=== PATIENT | male | born 1985 | race Caucasian/White ===

== ENCOUNTER → 2025-02-23 | Outpatient (CLI) | payer OTHER, SELFPAY ==
--- NOTE | 2025-02-23 07:53 | EKG12_ITS ---
Test Reason : PRE OP Blood Pressure : */* mmHG Vent. Rate : 53 BPM Atrial Rate : 53 BPM P-R Int : 164 ms QRS Dur : 96 ms QT Int : 432 ms P-R-T Axes : -5 72 36 degrees QTcB Int : 405 ms Sinus bradycardia Otherwise normal ECG Confirmed by Baldo Tucker ([id number]), assistant editor BLAYNE REEVES ([id number]) on 02/27/2025 1:02:55 PM Referred By: Jose Thompson Confirmed By: Baldo Tucker
[2025-02-23 10:04] LABS: Anion Gap 9 (5-15); BUN 23 mg/dL (4-19); BUN/Creat Ratio 21.4 RATIO (10-20); Calcium,Total 9.1 mg/dL (7.6-11.0); Carbon Dioxide 25.1 mmol/L (21.0-32.0); Chloride 106 mmol/L (98-108); Creatinine, Serum 1.07 mg/dL (0.70-1.20); EST Glomerular Filtration Rate 89 (>60); Glucose 103 mg/dL (70-99); Potassium 4.4 mmol/L (3.3-5.1); Sodium Level 140 mmol/L (133-145)
== END | disposition home or self-care (01) ==
LOC: PSN 06:56
PROVIDERS: Referring Provider Orthopaedic Surgery; Visit Provider Orthopaedic Surgery
DX: Z01.810 Encounter for preprocedural cardiovascular examination (principal)
CPT/HCPCS: 36415; 80048; 93005